=== PATIENT | male | born 1965 | race Caucasian/White ===

== ENCOUNTER → 2020-02-18 12:40 | Outpatient (BNVA) | payer OTHER, SELFPAY | PROVIDERS: PCP Internal Medicine; Visit Provider Surgery | DX: Z01.818 Encounter for other preprocedural examination (principal); Z86.010 Personal history of colon polyps | CPT/HCPCS: 99203 ==

== ENCOUNTER 2020-03-11 06:54 | Day surgery (SDC) | payer OTHER, SELFPAY ==
[2020-03-07 12:32] VITALS: BMI 35.9
--- NOTE | 2020-03-09 15:40 | P.CONAN_ITS ---
Documented by User: Courtney Quintana 03/09/20 15:41 HPI - Anesthesia Eval Consult details Narrative: 54yo M for Colonoscopy COUNTS INCLUDE 234 BEDS AT THE [facility] Past Medical History Medical History History of adenomatous polyp of colon Hypertension Surgical History Surgical History H/O colonoscopy History of bunionectomy Social History Social History Alcohol intake: never Smoking Status: Former smoker Advance Directives Information Provided: No Meds Allergies Allergy/AdvReac Type Severity Reaction Status Date / Time No Known Allergies Allergy Verified 02/18/20 13:11 [No Known Allergies*] Home Medications Medication Instructions Recorded Confirmed Type hydrochlorothiazide 12.5 mg tablet 12.5 mg PO DAILY 02/18/20 03/07/20 History lisinopril 40 mg tablet 40 mg PO DAILY 02/18/20 03/11/20 History sennosides 8.6 mg tablet [id number]? mg PO Q12H PRN 02/18/20 History Exam Exam Date and Time: March 09, 2020 1540 Height,Weight and Vital Signs: Height 5 ft 5 in Weight 97.976 kg Assessment and Plan Assessment Anesthesia Assessment: Chart Reviewed Documented by User: Andrey Gonzalez 03/11/20 08:17 COUNTS INCLUDE 234 BEDS AT THE [facility] Past Medical History Medical History History of adenomatous polyp of colon Hypertension Surgical History Surgical History H/O colonoscopy History of bunionectomy Social History Social History Alcohol intake: never Smoking Status: Former smoker Advance Directives Information Provided: No Meds Allergies Allergy/AdvReac Type Severity Reaction Status Date / Time No Known Allergies Allergy Verified 02/18/20 13:11 [No Known Allergies*] Home Medications Medication Instructions Recorded Confirmed Type hydrochlorothiazide 12.5 mg tablet 12.5 mg PO DAILY 02/18/20 03/07/20 History lisinopril 40 mg tablet 40 mg PO DAILY 02/18/20 03/11/20 History sennosides 8.6 mg tablet [id number]? mg PO Q12H PRN 02/18/20 History Exam Airway Mallampati Class: II TM Dist: >3cm Neck ROM: Full Loose/Missing/Broken Teeth: Yes Other: missing Assessment and Plan Assessment Anesthesia Assessment: Anesthesia Plan Discussed and Chart Reviewed Final Anesthetic Review NPO: Yes ASA Class: II Final Preanesthetic Review: No Changes in Pt Med Stat, Meds/Allgs Chart Reviewed, Consent Obtained/Reviewed and Anes Risks/Benef Reviewed Patient Risk: Low Procedure Risk: Low Anesthetic Plan Anesthetic Plan: MAC: and Agree w/ Assess. and Plan Disposition: Standard PACU
[2020-03-11 07:10] VITALS: BP 116/77; PULSE 83; RESP 18; TEMP 36.7; O2SAT 99
[2020-03-11] MEDS: Lactated Ringers 1,000 ML 100 ML IVCONT (07:19)
--- NOTE | 2020-03-11 08:06 | MHC.SHP ---
Pre-Procedural Eval Section B Chief Complaint: Hx of adenomatous polyp of colon cancer Details of Present Illness: for colonoscopy - has hx of tubular adenomas Relevant Social History: None Present Medications: see Short Stay Collaborative assessment Medical History: Significant History (HTN) History of Previous Operations: No relevant previous surgery Allergies: Allergies Allergy/AdvReac Type Severity Reaction Status Date / Time No Known Allergies Allergy Verified 02/18/20 13:11 [No Known Allergies*] Review of Systems Sugical H&P ROS: Negative: Constitution, Cardiovascular, Respiratory, Neurological, Psychiatric, Hem-Onc, Allergic/Immunologic, Gastrointestinal, Genitourinary, Musculoskeletal, Integumentary, Endocrine and Eyes/Ears/Nose/Throat Exam Surgical H&P Exam: Normal: HEENT, Normal: Heart, Normal: Lungs, Normal: Extremities, Normal: Abdomen, Normal: Skin and Normal: Neurological Plan Diagnosis/Plan: Unchanged Patient has been examined and remains a candidate for the planned procedure
--- NOTE | 2020-03-11 09:15 | PM.OP ---
Brief Operative Note Date of Service: 03/11/20 Pre-op diagnosis: hx of polyps Post-op diagnosis: other (polyp 1 cm, ;teresa; 80; polyp 1 cm, level 70) Procedure: colonoscopy, polypectomy with hot snare x2 Surgeon: Mat Vivas MD Anesthesia: MAC Estimated blood loss (mL): 0 Pathology: other (polyps) Condition: stable Disposition: PACU
[2020-03-11 09:17] VITALS: BP 89/52; PULSE 71; RESP 22; TEMP 36.4; O2SAT 95
[2020-03-11 09:32] VITALS: BP 103/67; PULSE 60; RESP 18; TEMP 36.4; O2SAT 96
--- NOTE | 2020-03-11 09:43 | HO.POSTANES ---
Post Anesthesia Evaluation Post Anesthesia Evaluation Vital Signs: Vital Signs Temp Pulse Resp BP Pulse Ox 03/11/20 09:32 97.6 F 60 18 103/67 96 03/11/20 09:17 97.6 F 71 22 H 89/52 L 95 03/11/20 07:10 98.1 F 83 18 116/77 99 Anesthesia: Monitored Mental Status: Awake Pain Control: Satisfactory Nausea/Vomiting: None Hydration: Adequate Anesthesia-Related Issues: No Anes. Related Issues
--- NOTE | 2020-03-11 10:30 | OP_ITS ---
SURGEON: Mat Viavs MD INDICATIONS: The patient is a 54-year-old male, who has a previous history of tubular adenoma. I had recommended him to have a repeat colonoscopy. He understood technique of procedure. He is aware of the risks, benefits, and alternatives. PREOPERATIVE DIAGNOSIS: History of tubular adenoma. POSTOPERATIVE DIAGNOSIS: PROCEDURE PERFORMED: ESTIMATED BLOOD LOSS: COMPLICATIONS: ANESTHESIA: ASSISTANTS: SPECIMENS: POSTOPERATIVE DIAGNOSES: 1. Large polyp about 1 cm on a stalk at level 80 cm. 2. Another large polyp about 1 cm on a long stalk at level 70 cm. DESCRIPTION OF PROCEDURE: He was brought to the operating room, placed in left lateral decubitus position under monitored anesthesia care. A full digital rectal was done, and there were no palpable and canal lesions. The tip of the Olympus colonoscope was introduced gently through the anal orifice and advanced with insufflation to all the cecum, but the cecum was intubated. The cecum identified by visualization of the ileocecal valve as well as the appendiceal orifice. The cecal mucosa was unremarkable. The scope was gradually withdrawn with careful examination of the entire colonic mucosa being done with scope withdrawal. The patient had good bowel prep, so it was unlikely that any lesion had been missed. At level 80 cm, there was note of a large polyp over 1 cm on a small stalk and this was removed using a hot snare. This was retrieved by suctioning this with the scope all the way out into the anus. We reinserted the scope and all the way to the previous polypectomy site, withdrew back and another polyp was seen at about 70 cm level. This was a 1 cm polyp on a long stalk and this was removed using a hot snare. This was retrieved in the same manner as the earlier polyp. Reinserted the scope and reexamined all the way to 80 cm level and we continued withdrawal back with careful examination of the rest of the colonic mucosa. There were no other lesions seen. There were no other polyps. The rectum was examined carefully. The anal canal was unremarkable. The scope was then withdrawn completely with de-sufflation. The patient tolerated the procedure well. There were no complications noted. I would recommend another colonoscopy in the next 3 years in view of the history as well as because of these 2 large polyps. PROCEDURES PERFORMED: Colonoscopy with polypectomy using hot snare x2. Mat Vivas MD FM/MODL / [id number]
== END 2020-03-11 09:55 | disposition home or self-care (01) ==
PROVIDERS: PCP Internal Medicine; Visit Provider Surgery
PROC: 0DJD8ZZ Inspection of Lower Intestinal Tract, Via Natural or Artificial Opening Endoscopic (ICD-10-PCS; CPT 45378; principal; 2020-03-11 08:40)
DX: Z12.11 Encounter for screening for malignant neoplasm of colon (principal); Z86.010 Personal history of colon polyps; D12.4 Benign neoplasm of descending colon; I10 Essential (primary) hypertension; Z79.899 Other long term (current) drug therapy; Z87.891 Personal history of nicotine dependence
CPT/HCPCS: 45385; 88305; J3010

== ENCOUNTER → 2020-03-23 08:52 | Outpatient (BNVA) | payer OTHER, MEDICARE, SELFPAY | PROVIDERS: PCP Internal Medicine; Referring Provider Internal Medicine; Visit Provider Surgery | DX: D12.6 Benign neoplasm of colon, unspecified (principal); Z98.890 Other specified postprocedural states | CPT/HCPCS: 99212 ==